=== PATIENT | male | born 1995 | race Caucasian/White ===

== ENCOUNTER → 2019-09-10 | Outpatient (CLI) | payer OTHER ==
--- NOTE | 2019-09-10 18:29 | REP ---
RIGHT FIRST DIGIT: Four views of the right first digit are performed. There is no evidence of acute fracture, dislocation or intrinsic bone disease. Electronically Signed by Dario Cuevas MD 09/11/2019 11:54 A
== END ==
LOC: M LRY 17:47
PROVIDERS: ATTEND Physician Assistant
DX: S69.91XA Unspecified injury of right wrist, hand and finger(s), initial encounter (principal); X58.XXXA Exposure to other specified factors, initial encounter; Y92.89 Other specified places as the place of occurrence of the external cause

== ENCOUNTER 2019-09-15 13:22 | Day surgery (SDC) | payer OTHER ==
[~2019-09-15] VITALS: Ht 188 cm; Wt 86.6 kg
[~2019-09-15 13:22] MED LIST: CEPH500C PO; LIDOCAINE 2% 100MG/5ML SDV (FOR ANES.) As Ordered ONE; LR 1,000 ML IV ONE; MIDAZOLAM INJ 2MG/2ML VIAL (J2250 PER 1MG) As Ordered ONE; ONDANSETRON 4MG/2ML VIAL (J2405 PER 1MG) As Ordered ONE; PHENYLephrine HCL 500 MCG/5 ML (100MCG/ML) SYRINGE (J2370) As Ordered ONE; ceFAZolin SOD 2 GM in IV 1 EA IV ONE; dexameTHASONE 4 MG/ML 1ML VIAL (J1100 PER 1MG) As Ordered ONE; ePHEDrine SULFATE 25 MG/5 ML(5MG/ML) SYRINGE As Ordered ONE; fentaNYL 100 MCG/2 ML INJECTION (J3010) As Ordered ONE; propofoL 200 MG/20 ML VIAL As Ordered ONE
[2019-09-15] MEDS ORDERED: propofoL 200 MG/20 ML VIAL As Ordered ONE ×2 (15:48→16:06)
[2019-09-15] MEDS ORDERED: BUPIVACAINE/EPIN 0.25% 30 ML VIAL As Ordered ONE (15:48)
[2019-09-15 17:40] VITALS: BP 119/62
--- NOTE | 2019-09-16 08:14 | RO ---
DATE OF PROCEDURE: 09/15/2019 PREOPERATIVE DIAGNOSIS: Right thumb laceration with possible tendon injury. POSTOPERATIVE DIAGNOSES: Right thumb laceration with complete laceration of the extensor pollicis longus (EPL), partial laceration of the extensor pollicis brevis (EPB), sagittal wells laceration, open fracture and traumatic arthrotomy of the 1st metacarpal at metacarpophalangeal (MCP) joint. PROCEDURE: Extensor tendon pollicis repair, extensor tendon brevis repair, metacarpophalangeal exploration of the arthrotomy and removal of loose debris, irrigation and debridement sharply of the open fracture of the metacarpal head, sagittal band repair. SURGEON: Dr. Navjot Quintana DONOR FLOOR TECHNICIAN: Allison Alexander PA-C, who was essential for retraction during sterling portions of procedure. ANESTHESIA: Monitored sedation with local injection of total of 20 mL of 0.25% Marcaine with epinephrine. COMPLICATIONS: None. ESTIMATED BLOOD LOSS: Minimal. TOURNIQUET TIME: 33 minutes. INDICATIONS: This is a 23-year-old male who was chopping wood when the hatchet head slipped off of the handle and landed onto his right hand, immediately appreciating pain and inability and difficulty straightening his thumb. In the preoperative area, he was able to do partial extension but with significant discomfort due to the traumatic laceration. We did discuss the risks and benefits of a diagnostic exploratory surgery with treating of any tendon ruptures that we identified. We discussed the risks and benefits of this including, but not limited to, infection, damage to surrounding structures, incomplete relief, and need for further surgery. Patient expressed understanding and agreement with that plan. Preoperatively, he had already had his tetanus updated and was taking oral antibiotics for the traumatic injury. DESCRIPTION OF PROCEDURE: Patient brought back to the operating room (OR) in the supine position. Underwent moderate sedation, at which point a time-out was had, confirming site, side, and surgery. Once in agreement, we injected 20 mL of 0..25% Marcaine with epinephrine local block on the dorsum of the thumb, at which point the right arm was prepped and draped in the usual fashion. We then elevated the tourniquet up to 250 mmHg. We extended the incision proximally and distally to gain exposure, sharply dissecting through subcutaneous tissue, careful to identify and preserve superficial branches of sensory nerves. We then nearly encountered a laceration of EPB 100% directly underneath the traumatic laceration along with a 30% laceration of the extensor pollicis brevis along with a laceration of the ulnar extent of the sagittal wells. Once we opened these up, we noticed a laceration within the 1st MCP capsule. We further split this capsule rent in order to gain exploration and noticed an open fracture of the 1st metacarpal with bone missing. We were able to identify the bone within the joint and remove it. We then sharply debrided the open fracture with combination of #15 blade, curette, and freer elevator. We then irrigated the whole wound with a liter of normal saline, at which point we closed the MCP capsule with interrupted #3-0 Vicryl. Closed the sagittal band with interrupted #3-0 Vicryl stitches. We then repaired the EPL tendon with a combination of interrupted #3-0 Vicryl sutures along with a whipstitch to provide more strength and closed the EPB with interrupted #3-0 sutures, at which point we closed the subcutaneous tissue with #3-0 Vicryl, skin with #3-0 nylon, placed a dressing of Adaptic, gauze, and sterile Webril, and placed the patient in a thumb spica splint. The patient was then awakened and taken back to the postanesthesia care unit (PACU) in stable condition. POSTOPERATIVE PLAN: We will see the patient 1 week postoperatively and transition the patient to physical therapy so we can make a remove the splint, and to start therapy. Will see the patient back in about 2 to 2-1/2 weeks postoperatively for suture removal. Patient expressed understanding and agreement with this plan ahead of time.
== END 2019-09-15 17:45 | disposition home or self-care (01) ==
LOC: M SDC 13:22
PROVIDERS: ATTEND Orthopaedic Surgery Hand Surgery
DX: S62.514A Nondisplaced fracture of proximal phalanx of right thumb, initial encounter for closed fracture (principal); S66.021A Laceration of long flexor muscle, fascia and tendon of right thumb at wrist and hand level, initial encounter; S66.421A Laceration of intrinsic muscle, fascia and tendon of right thumb at wrist and hand level, initial encounter; W26.8XXA Contact with other sharp object(s), not elsewhere classified, initial encounter; Y92.89 Other specified places as the place of occurrence of the external cause; Y93.I9 Activity, other involving external motion; Y99.8 Other external cause status; Z79.2 Long term (current) use of antibiotics; F17.210 Nicotine dependence, cigarettes, uncomplicated
CPT/HCPCS: 11012; 26418; 26437; J0690; J1100; J2250; J2370; J2405; J3010

== ENCOUNTER → 2021-05-04 | Outpatient (CLI) | payer OTHER ==
[~2021-05-04] MED LIST changes: -LIDOCAINE 2% 100MG/5ML SDV (FOR ANES.) As Ordered ONE; -LR 1,000 ML IV ONE; -MIDAZOLAM INJ 2MG/2ML VIAL (J2250 PER 1MG) As Ordered ONE; -ONDANSETRON 4MG/2ML VIAL (J2405 PER 1MG) As Ordered ONE; -PHENYLephrine HCL 500 MCG/5 ML (100MCG/ML) SYRINGE (J2370) As Ordered ONE; -ceFAZolin SOD 2 GM in IV 1 EA IV ONE; -dexameTHASONE 4 MG/ML 1ML VIAL (J1100 PER 1MG) As Ordered ONE; -ePHEDrine SULFATE 25 MG/5 ML(5MG/ML) SYRINGE As Ordered ONE; -fentaNYL 100 MCG/2 ML INJECTION (J3010) As Ordered ONE; -propofoL 200 MG/20 ML VIAL As Ordered ONE
== END ==
LOC: M LABSMTC 09:32
PROVIDERS: ATTEND Pediatrics
DX: Z20.822 Contact with and (suspected) exposure to COVID-19 (principal)

== ENCOUNTER → 2021-08-30 | Outpatient (CLI) | payer OTHER | LOC: M OUTALCOH 08:17 | PROVIDERS: ATTEND Psychiatry & Neurology Psychiatry | DX: Z02.89 Encounter for other administrative examinations (principal) ==

== ENCOUNTER 2021-09-29 10:00 | Outpatient (RCR) | payer OTHER | END 2021-10-01 | LOC: M OUTALCOH 10:00 | PROVIDERS: ATTEND Psychiatry & Neurology Psychiatry | DX: F10.20 Alcohol dependence, uncomplicated (principal); F12.10 Cannabis abuse, uncomplicated; F17.200 Nicotine dependence, unspecified, uncomplicated ==

== ENCOUNTER 2021-10-27 10:00 | Outpatient (RCR) | payer MEDICAID | END 2021-11-01 | LOC: M OUTALCOH 10:00 | PROVIDERS: ATTEND Psychiatry & Neurology Psychiatry | DX: F10.20 Alcohol dependence, uncomplicated (principal); F12.10 Cannabis abuse, uncomplicated; F17.200 Nicotine dependence, unspecified, uncomplicated ==

== ENCOUNTER 2021-11-30 10:12 | Emergency (ER) | payer MEDICAID, OTHER ==
[~2021-11-30] VITALS: Ht 182.9 cm; Wt 85.1 kg
[2021-11-30] MEDS ORDERED: AUGMENTIN 875 MG TAB PO ONE (12:20)
[2021-11-30] MEDS ORDERED: KETOROLAC TROMETHAMINE 10 MG TAB PO ONE (12:20)
[2021-11-30] MEDS ORDERED: ACETAMINOPHEN 325 MG TAB PO ONE (12:20)
[2021-11-30] MEDS ORDERED: KETO10TAB PO (12:24)
[2021-11-30] MEDS ORDERED: AMOX875T2 PO (12:24)
[2021-11-30 12:37] VITALS: BP 123/91
== END 2021-11-30 12:40 | disposition home or self-care (01) ==
LOC: M ED 10:12
DX: K04.7 Periapical abscess without sinus (principal); K02.9 Dental caries, unspecified; F17.200 Nicotine dependence, unspecified, uncomplicated

== ENCOUNTER 2024-02-13 04:33 | Emergency (ER) | payer OTHER ==
[~2024-02-13] VITALS: Ht 182.9 cm; Wt 86.5 kg
[~2024-02-13 04:33] MED LIST changes: +AMOX875T2 PO; +KETO10TAB PO
[2024-02-13 05:27] LABS: BASO % 0.2 % (0.0-1.0); EOS % 0.1 % (0.0-3.0); LYMPH # 1.6 10^3/uL (1.5-5.0); LYMPH % 9.7 % (24.0-44.0); MEAN CORPUSCULAR HEMOGLOBIN 31.7 pg (27.0-33.0); MEAN CORPUSCULAR HGB CONC 35.4 g/dl (32.0-36.5); MEAN CORPUSCULAR VOLUME 89.4 fl (80.0-96.0); MONO % 5.9 % (2.0-8.0); NEUTROPHILS % 83.4 % (36.0-66.0); PLATELET COUNT, AUTOMATED 206 10^3/uL (150-450); RED BLOOD COUNT 5.37 10^6/uL (4.30-6.10); WHITE BLOOD COUNT 16.7 10^3/uL (4.0-10.0)
[2024-02-13 05:45] LABS: INR 1.01; PARTIAL THROMBOPLASTIN TIME 24.5 SECONDS (24.8-34.2)
[2024-02-13 05:56] LABS: LIPASE 32 U/L (12-53)
[2024-02-13 05:57] LABS: ETHYL ALCOHOL (ETHANOL) 0.153 % (0.000-0.010)
[2024-02-13 05:58] LABS: ALBUMIN 4.7 G/DL (3.2-5.2); ALKALINE PHOSPHATASE 64 U/L (46-116); ALT/SGPT 27 U/L (7.0-40); AMYLASE 54 U/L (30-118); AST/SGOT 23 U/L (<34); BILIRUBIN,DIRECT 0.2 MG/DL (<0.4); BILIRUBIN,TOTAL 0.6 MG/DL (0.3-1.2); BLOOD UREA NITROGEN 8 MG/DL (9-23); CALCIUM LEVEL 8.8 MG/DL (8.5-10.1); CARBON DIOXIDE LEVEL 28 MMOL/L (20-31); CHLORIDE LEVEL 106 MMOL/L (98-107); CK-MB VALUE MASS 1.9 NG/ML (<3.6); CREATININE FOR GFR 0.92 MG/DL (0.70-1.30); GLOMERULAR FILTRATION RATE > 60.0 (>60); GLUCOSE, FASTING 91 MG/DL (60-100); POTASSIUM SERUM 3.9 MMOL/L (3.5-5.1); SODIUM LEVEL 143 MMOL/L (136-145); TOTAL PROTEIN 7.6 G/DL (5.7-8.2)
[2024-02-13] MEDS ORDERED: ISOVUE-370 76% 100ML VIAL As Ordered ONE (05:58)
[2024-02-13 06:02] LABS: CPK CREATINE PHOSPHOKINASE 254 U/L (46-171); MB/CK RELATIVE INDEX 0.74 (< OR =4)
[2024-02-13 07:39] LABS: APPEARANCE, URINE CLEAR (CLEAR); BACTERIA, URINE AUTO NEGATIVE (NEGATIVE); BILIRUBIN, URINE AUTO NEGATIVE (NEGATIVE); BLOOD, URINE BLOOD NEGATIVE (NEGATIVE); COLOR, URINE YELLOW (YELLOW); GLUCOSE, URINE (UA) AUTO NEGATIVE (NEGATIVE); KETONE, URINE AUTO NEGATIVE (NEGATIVE); LEUKOCYTE ESTERASE, URINE AUTO NEGATIVE (NEGATIVE); NITRITE, URINE AUTO NEGATIVE (NEGATIVE); PROTEIN, URINE AUTO NEGATIVE (NEGATIVE); RBC, URINE AUTO 0 /HPF (0-3); SPECIFIC GRAVITY URINE AUTO 1.027 (1.002-1.035); SQUAMOUS EPITHELIAL CELL UR AU 0 /HPF (0-6); UROBILINOGEN, URINE AUTO 0.2 mg/dL (0.0-2.0); WBC, URINE AUTO 1 /HPF (0-3)
[2024-02-13 07:53] LABS: AMPHETAMINES LEVEL URINE NEGATIVE (NEGATIVE); BARBITURATES URINE NEGATIVE (NEGATIVE); BENZODIAZEPINES URINE NEGATIVE (NEGATIVE); COCAINE METABOLITE URINE NEGATIVE (NEGATIVE); METHADONE URINE NEGATIVE (NEGATIVE); OPIATES URINE NEGATIVE (NEGATIVE); PHENCYCLIDINE URINE NEGATIVE (NEGATIVE)
[2024-02-13 07:54] LABS: CANNABINOIDS URINE POSITIVE (NEGATIVE)
[2024-02-13 09:15] VITALS: BP 92/54; TEMP 98.5; O2SAT 95
== END 2024-02-13 09:30 | disposition home or self-care (01) ==
LOC: M ED 04:33
DX: S80.11XA Contusion of right lower leg, initial encounter (principal); S60.222A Contusion of left hand, initial encounter; W22.11XA Striking against or struck by driver side automobile airbag, initial encounter; V47.0XXA Car driver injured in collision with fixed or stationary object in nontraffic accident, initial encounter; R00.0 Tachycardia, unspecified; F12.10 Cannabis abuse, uncomplicated; F10.10 Alcohol abuse, uncomplicated; Z79.2 Long term (current) use of antibiotics; Z79.899 Other long term (current) drug therapy; Y92.410 Unspecified street and highway as the place of occurrence of the external cause; Y93.89 Activity, other specified; Y99.9 Unspecified external cause status
CPT/HCPCS: 70450; 72125; 73110; 73130; 73564; 73590; 73610; 74177; 80047; 80048; 80076; 80307; 81001; 82077; 82150; 82550; 82553; 83605; 83690; 84484; 85025; 85610; 85730; 86850; 86900; 86901; 93005; 93041; 94760; 99285; Q9967

== ENCOUNTER 2024-09-03 11:16 | Emergency (ER) | payer OTHER ==
[~2024-09-03] VITALS: Ht 182.9 cm; Wt 91.1 kg
[2024-09-03 11:23] VITALS: TEMP 97.5
[2024-09-03] MEDS: diazePAM 5MG TABLET PO ONE (16:39)
[2024-09-03] MEDS: ACETAMINOPHEN 500 MG TAB PO ONE (16:39)
[2024-09-03] MEDS: KETOROLAC 30 MG/ML 1ML VIAL IM ONE (16:42)
[2024-09-03] MEDS ORDERED: CYCL-707 PO (17:40)
[2024-09-03] MEDS ORDERED: GABA-1172 PO (17:40)
[2024-09-03] MEDS ORDERED: MEDR4PAK PO (17:42)
[2024-09-03 17:49] VITALS: BP 144/83; O2SAT 98
== END 2024-09-03 17:51 | disposition home or self-care (01) ==
LOC: M ED 11:16
DX: M54.17 Radiculopathy, lumbosacral region (principal); F12.10 Cannabis abuse, uncomplicated; F10.10 Alcohol abuse, uncomplicated; F17.200 Nicotine dependence, unspecified, uncomplicated; Z79.2 Long term (current) use of antibiotics; Z79.899 Other long term (current) drug therapy
CPT/HCPCS: 96372; 99283; J1885